=== PATIENT | female | born 1985 | race African-American/Black ===

== ENCOUNTER 2018-04-18 12:12 | Inpatient (IN) | payer MEDICAID, OTHER ==
[~2018-04-18] VITALS: Ht 149.9 cm; Wt 62.1 kg
[~2018-04-18 12:12] MED LIST: FLUO-191 PO
[2018-04-18] MEDS ORDERED: DIPH25 PO (12:32)
[2018-04-18] MEDS ORDERED: [UNRECOGNIZED DRUG - CODE] PO (12:32)
[2018-04-18] MEDS ORDERED: [UNRECOGNIZED DRUG - CODE] PO (12:32)
[2018-04-18 12:43] LABS: BASOPHILS % (AUTO) 1.2 % (0.0-2.0); EOSINOPHILS % (AUTO) 3.6 % (1.0-6.0); HEMATOCRIT 37.9 % (36-46); HEMOGLOBIN 13.2 g/dL (12.0-16.0); LYMPHOCYTES # (AUTO) 2.3 K/uL (1.0-4.8); MEAN CORPUSCULAR HGB CONC 34.9 G/dL (31.0-37.0); MEAN CORPUSCULAR VOLUME 95 fL (80-100); MONOCYTES # (AUTO) 0.7 K/uL (0.1-1.0); MONOCYTES % (AUTO) 11.1 % (2.0-9.0); NEUTROPHILS # (AUTO) 3.2 K/uL (1.8-7.7); NEUTROPHILS % (AUTO) 49.1 % (40.0-70.0); PLATELET COUNT (AUTO) 297 K/uL (150-450); RED CELL DISTRIBUTION WIDTH 13.4 % (11.5-14.5)
[2018-04-18] MEDS ORDERED: SODIUM CHLORIDE 0.9% 1,000 ML IV ONE (13:00)
[2018-04-18 13:05] LABS: ANION GAP 8 mmol/L (8-16); CALCIUM, TOTAL 8.7 mg/dL (8.8-10.5); CARBON DIOXIDE 29 mmol/L (22-29); CHLORIDE 102 mmol/L (98-107); CREATININE 0.92 mg/dL (0.60-1.30); GLOMERULAR FILTR. RATE CALC > 60 mL/min (>60); GLUCOSE,RANDOM 58 mg/dL (70-110); POTASSIUM 3.4 mmol/L (3.5-5.1); SODIUM SERUM 139 mmol/L (136-145); UREA NITROGEN, BLOOD 9 mg/dL (7-18)
[2018-04-18 13:07] LABS: SALICYLATE < 2.8 mg/dL (2.8-20.0)
[2018-04-18 13:15] LABS: ACETAMINOPHEN 22 mcg/mL (10-30); ALANINE AMINOTRANSFERASE 15 U/L (12-78); ALBUMIN 3.4 g/dL (3.4-5.0); ALKALINE PHOSPHATASE 67 U/L (46-116); ASPARTATE AMINOTRANSFERASE 15 U/L (15-37); BILIRUBIN,TOTAL 0.7 mg/dL (0.1-1.0); HCG,QUANTITATIVE < 1 mIU/mL (0-6); TOTAL PROTEIN, SERUM 7.2 g/dL (6.4-8.2)
[2018-04-18 13:27] LABS: AMPHET/METH SCREEN,URINE NEGATIVE (NEGATIVE); BARBITURATE SCREEN, URINE NEGATIVE (NEGATIVE); BENZODIAZEPINES SCREEN,URINE POSITIVE (NEGATIVE); CANNABINOID SCREEN,URINE POSITIVE (NEGATIVE); COCAINE SCREEN,URINE POSITIVE (NEGATIVE); METHADONE SCREEN, URINE NEGATIVE (NEGATIVE); OPIATE SCREEN,URINE NEGATIVE (NEGATIVE)
[2018-04-18 13:28] LABS: PHENCYCLIDINE SCREEN,URINE NEGATIVE (NEGATIVE)
[2018-04-18] MEDS ORDERED: ZOLPIDEM TARTRATE 10 MG TABLET PO PRN (18:15)
[2018-04-18 19:38] LABS: CHOL/HDL RATIO 2.1 (3.9-5.7)
[2018-04-19 10:30] VITALS: BP 132/90
[2018-04-19] MEDS: LORazepam 2 MG TABLET PO PRN ×2 (11:02→16:42)
[2018-04-19] MEDS: HALOPERIDOL 5 MG TABLET PO PRN ×2 (11:02→16:42)
[2018-04-19] MEDS: ESCITALOPRAM OXALATE 10 MG TABLET PO SCH (11:21)
[2018-04-19 17:04] VITALS: BP 115/66
[2018-04-20 06:21] VITALS: BP 117/85
[2018-04-20 08:29] VITALS: BP 121/64
[2018-04-20] MEDS: ESCITALOPRAM OXALATE 10 MG TABLET PO SCH (09:17)
[2018-04-20 16:14] VITALS: BP 112/69
[2018-04-20] MEDS: HALOPERIDOL 5 MG TABLET PO PRN (17:04)
[2018-04-20] MEDS: LORazepam 2 MG TABLET PO PRN (17:04)
[2018-04-21 06:23] VITALS: BP 101/68
[2018-04-21 08:38] VITALS: BP 107/65
[2018-04-21] MEDS: ESCITALOPRAM OXALATE 10 MG TABLET PO SCH (08:43)
[2018-04-21] MEDS ORDERED: ESCI10TA PO (11:55)
== END 2018-04-21 13:00 | disposition home or self-care (01) | DRG 751 ==
LOC: EMS 12:13 → B3A 04-19 09:06 → EMS 04-19 09:45
PROVIDERS: ADMIT Psychiatry & Neurology Child & Adolescent Psychiatry; ATTEND Psychiatry & Neurology Child & Adolescent Psychiatry
DX: F33.2 Major depressive disorder, recurrent severe without psychotic features (principal); E78.5 Hyperlipidemia, unspecified; E87.6 Hypokalemia; F41.9 Anxiety disorder, unspecified; Z81.8 Family history of other mental and behavioral disorders; F19.10 Other psychoactive substance abuse, uncomplicated; Z71.51 Drug abuse counseling and surveillance of drug abuser; F14.10 Cocaine abuse, uncomplicated; F12.10 Cannabis abuse, uncomplicated
CPT/HCPCS: 93005; 99291; G0480; G0481; J7030